=== PATIENT | female | born 1935 | race Caucasian/White ===

== ENCOUNTER 2018-03-16 08:32 | Day surgery (SDC) | payer OTHER ==
[2018-03-11 17:34] VITALS: BMI 24.5
[2018-03-16 13:56] VITALS: TEMP 98.4
[2018-03-16 15:10] VITALS: BP 122/60; PULSE 78
--- NOTE | 2018-03-17 16:14 | PATH ---
Surgical Pathology Report Patient Name: GUZMAN DEL RIO [facility]. Rec. #: [id number] /Age/Gender: 1935 (Age: 82) / F Account: [id number] Location: RADIOLOGY [facility] Taken: 03/16/2018 Received: 03/16/2018 Reported: 03/17/2018 Physicians: Elvira Perez M.D. Specimen(s) Received RIGHT LUNG BIOPSY Clinical History Right upper lobe spiculated lesion Final Diagnosis LUNG, RIGHT, CT GUIDED CORE BIOPSY: RARE DETACHED SMALL AGGREGATES OF ATYPICAL CELLS ADMIXED WITH BLOOD AND SEPARATE FRAGMENTS OF BENIGN LUNG PARENCHYMA. Comment: Deeper levels have been examined. Immunohistochemical stain for TTF-1 performed and interpreted at [facility] was utilized to evaluate this case. Suggest clinical/radiologic correlation. Electronically Signed Stephanie Baez M.D. Gross Description Received in formalin labeled "right lung biopsy," is a 0.4 x 0.3 x 0.1 cm aggregate of rooney soft tissue fragments. The formalin is filtered and the specimen is entirely submitted in one cassette. DL/03/16/2018 saudi/03/16/2018
== END 2018-03-16 15:25 | disposition home or self-care (01) ==
LOC: JRADIR 08:32
PROVIDERS: ATTEND Internal Medicine Pulmonary Disease
PROC: 0BBC3ZX Excision of Right Upper Lung Lobe, Percutaneous Approach, Diagnostic (ICD-10-PCS; principal; 2018-03-16)
DX: D14.31 Benign neoplasm of right bronchus and lung (principal)
CPT/HCPCS: 32405; 71045-TC-FY; 77012-TC; 88305-TC; 88342-TC